=== PATIENT | female | born 1975 | race Caucasian/White ===

== ENCOUNTER 2019-11-09 14:53 | Emergency (ER) | payer SELFPAY ==
[~2019-11-09] VITALS: Ht 154.9 cm; Wt 112.0 kg
[2019-11-09] MEDS ORDERED: IBUPROFEN 600MG TABLET PO ONE (16:30)
[2019-11-09] MEDS ORDERED: LIDOCAINE HCL/EPINEPHRINE 1%-EPI 1:100,000 20 ML VIAL INFIL NR (16:30)
[2019-11-09] MEDS ORDERED: CEPHALEXIN 250MG CAPSULE PO ONE (16:30)
[2019-11-09] MEDS ORDERED: LIDOCAINE 1%/EPI 1:100,000 10 ML VIAL IJ ONE (16:30)
[2019-11-09] MEDS ORDERED: SULFAMETHOXAZOLE/TRIMETHOPRIM 800/160MG TABLET PO ONE (16:30)
[2019-11-09] MEDS ORDERED: TETANUS, DIPHTHERIA, PERTUSSIS VAC/PF 0.5ML (>7YR OLD) IM ONE (16:30)
[2019-11-09 17:30] VITALS: BP 144/65
== END 2019-11-09 19:02 | disposition home or self-care (01) ==
LOC: ER 14:53
DX: L03.115 Cellulitis of right lower limb (principal); L02.415 Cutaneous abscess of right lower limb; I10 Essential (primary) hypertension; E66.9 Obesity, unspecified; Z68.42 Body mass index [BMI] 45.0-49.9, adult; Z98.51 Tubal ligation status; Z90.49 Acquired absence of other specified parts of digestive tract
CPT/HCPCS: 10060; 90471; 90715; 99283; J3490

== ENCOUNTER 2021-05-05 21:59 | Emergency (ER) | payer MEDICAID ==
[~2021-05-05] VITALS: Ht 154.9 cm; Wt 104.5 kg
[2021-05-05 22:46] VITALS: BP 153/100
[2021-05-06] MEDS ORDERED: ASPIRIN 325MG EC TABLET PO ONE (00:45)
[2021-05-06] MEDS ORDERED: KETOROLAC 15MG/ML VIAL IM ONE (00:45)
== END 2021-05-06 01:53 | disposition home or self-care (01) ==
LOC: ER 21:59
DX: U07.1 COVID-19 (principal); R07.89 Other chest pain; I10 Essential (primary) hypertension; J45.909 Unspecified asthma, uncomplicated; Z90.49 Acquired absence of other specified parts of digestive tract; Z98.51 Tubal ligation status
CPT/HCPCS: 87426; 93005; 96372; 99284

== ENCOUNTER 2021-08-02 22:19 | Emergency (ER) | payer MEDICAID ==
[~2021-08-02] VITALS: Ht 154.9 cm; Wt 117.0 kg
[2021-08-03] MEDS ORDERED: IBUPROFEN 600MG TABLET PO ONE (02:00)
[2021-08-03] MEDS ORDERED: ACETAMINOPHEN 325MG TABLET PO ONE (02:00)
[2021-08-03] MEDS ORDERED: NAPR-1176 MT (03:28)
[2021-08-03] MEDS ORDERED: TOPUD MT (03:28)
[2021-08-03 04:26] VITALS: BP 147/86
== END 2021-08-03 04:29 | disposition home or self-care (01) ==
LOC: ER 22:41
DX: S90.122A Contusion of left lesser toe(s) without damage to nail, initial encounter (principal); M20.42 Other hammer toe(s) (acquired), left foot; L84 Corns and callosities; I10 Essential (primary) hypertension; Z90.49 Acquired absence of other specified parts of digestive tract; Z98.51 Tubal ligation status; W01.0XXA Fall on same level from slipping, tripping and stumbling without subsequent striking against object, initial encounter; Y93.89 Activity, other specified; Y92.018 Other place in single-family (private) house as the place of occurrence of the external cause
CPT/HCPCS: 73630; 81025; 99283; Z7610

== ENCOUNTER 2021-10-25 05:35 | Emergency (ER) | payer MEDICAID ==
[~2021-10-25] VITALS: Ht 152.4 cm; Wt 117.5 kg
[~2021-10-25 05:35] MED LIST: NAPR-1176 MT; TOPUD MT
[2021-10-25 09:09] LABS: BASOPHILS % 0.5 % (0.0-2.0); EOSINOPHILS % 2.9 % (0.0-5.0); HEMATOCRIT. 41.5 % (36.0-48.0); HEMOGLOBIN. 13.7 g/dL (12.0-16.0); LYMPHOCYTES % 23.5 % (20.0-50.0); MEAN CORPUSCULAR HEMOGLOBIN 27.2 pg (28.0-32.0); MEAN CORPUSCULAR VOLUME 82.3 fL (81.0-99.0); MEAN PLATELET VOLUME 8.1 fl (7.4-10.4); MONOCYTES % 6.5 % (2.0-8.0); NEUTROPHILS % 66.6 % (40.0-76.0); PLATELET 265 x1000/uL (130-400); RED BLOOD CELL COUNT 5.05 mill/uL (4.2-5.4); RED CELL DISTRIBUTION WIDTH 15.1 % (11.6-14.6)
[2021-10-25 09:18] LABS: CHLORIDE 107 mEq/L (98-107)
[2021-10-25 10:20] VITALS: BP 115/80
== END 2021-10-25 10:38 | disposition home or self-care (01) ==
LOC: ER 05:35
DX: R07.89 Other chest pain (principal); I10 Essential (primary) hypertension; J45.909 Unspecified asthma, uncomplicated; Z98.51 Tubal ligation status
CPT/HCPCS: 36415; 71045; 80053; 83880; 84484; 85025; 93005; 99285